=== PATIENT | female | born 1985 | race Caucasian/White ===

== ENCOUNTER 2018-06-28 04:18 | Emergency (ER) | payer OTHER ==
[~2018-06-28] VITALS: Ht 165.1 cm; Wt 54.5 kg
[2018-06-28 04:33] VITALS: Ht 165.1 cm; Wt 54.5 kg
[2018-06-28] MEDS ORDERED: MINOCIN50 MG PO (04:55)
[2018-06-28] MEDS ORDERED: HYDROCODON-ACE1 EA10 PO (04:55)
[2018-06-28 06:02] VITALS: BP 103/72
== END 2018-06-28 06:02 | disposition home or self-care (01) ==
LOC: D.ER 04:18
DX: L02.31 Cutaneous abscess of buttock (principal)

== ENCOUNTER 2019-02-06 00:55 | Inpatient (IN) | payer OTHER ==
[~2019-02-06] VITALS: Ht 165.1 cm; Wt 56.1 kg
[~2019-02-06 00:55] MED LIST: HYDROCODON-ACE1 EA10 PO; MINOCIN50 MG PO
[2019-02-06 01:19] LABS: APPEARANCE HAZY (CLEAR); BILIRUBIN NEGATIVE (NEGATIVE); COLOR YELLOW (YELLOW); GLUCOSE NEGATIVE (NEGATIVE); KETONE NEGATIVE (NEGATIVE); NITRITE POSITIVE (NEGATIVE); PROTEIN NEGATIVE (NEGATIVE); SPECIFIC GRAVITY 1.015 (1.005-1.020)
[2019-02-06 01:21] LABS: BACTERIA MANY /hpf (NEGATIVE); EPITHELIAL CELLS 0-5 /hpf (0-5); RED CELLS - URINE 0-5 /hpf (0-5); WHITE CELLS - URINE >50 /hpf (NEGATIVE)
[2019-02-06 01:27] LABS: BASOPHILS 0.1 % (0-2); EOSINOPHILS 0.3 % (0-7); HEMATOCRIT 34.3 % (36.0-48.0); HEMOGLOBIN 11.3 g/dL (12-16); IMMATURE GRANULOCYTES 0.5 % (0-5); LYMPHOCYTES 7.4 % (15-50); MCH 30.5 pg (26.0-34.0); MCHC 32.9 g/dL (31.0-37.0); MCV 92.7 fL (80.0-100.0); MEAN PLATELET VOLUME 9.1 fL (7.4-10.4); MONOCYTES 8.5 % (2-11); NEUTROPHILS 83.2 % (40-80); RDW 12.8 % (11.5-14.5); WBC 14.7 10x3/uL (4.8-10.8)
[2019-02-06 01:29] LABS: PLATELET COUNT 330 10x3/uL (130-400)
[2019-02-06 01:36] LABS: CALC OSMOLALITY 274 mosm/kg (275-300); CALCIUM 8.7 mg/dL (8.5-10.1); CARBON DIOXIDE 27.1 mmol/L (21.0-32.0); CHLORIDE - SERUM 100 mmol/L (98-107); CREATININE - SERUM 0.8 mg/dL (0.6-1.3); POTASSIUM - SERUM 3.3 mmol/L (3.5-5.1); SODIUM 136 mmol/L (136-145); UREA NITROGEN 12 mg/dL (7-18); eGFR NON AFRICAN AMERICAN 89 mL/min (90-120)
[2019-02-06 01:37] LABS: GLUCOSE 144 mg/dL (74-106)
[2019-02-06 01:41] LABS: ALBUMIN 2.6 g/dL (3.4-5.0); ALKALINE PHOSPHATASE 98 U/L (46-116); ALT (SGPT) 16 U/L (10-68); PROTEIN - SERUM 7.2 g/dL (6.4-8.2)
--- NOTE | 2019-02-06 02:18 | NUR ---
RECEIVED FROM ER, PT IS A&OX4, BED IS LOW, SRX1, CALL LIGHT IN REACH, WILL CONTINUE PLAN OF CARE
[2019-02-06 03:54] VITALS: BP 108/56; Ht 165.1 cm; Wt 56.1 kg
[2019-02-06 04:05] VITALS: BP 108/56
--- NOTE | 2019-02-06 07:39 | NUR ---
PT WAS RESTING FITFULLY, DID NOT WAKE I ENTERED ROOM. PT IS MOANING, BUT APPEARS TO BE SLEEPING. DOES NOT WANT MORPHINE, WILL TRY AND GET DIFFERENT PAIN MEDICATION TODAY. DID NOT FURTHER DISTURB AT THIS TIME. CL IN REACH, SRX2. NO FAMILY PRESENT.
[2019-02-06 08:08] VITALS: BP 96/57
[2019-02-06 11:33] LABS: UDS - AMPHET POSITIVE QUAL (NEGATIVE); UDS - BARB NEGATIVE QUAL (NEGATIVE); UDS - BENZO NEGATIVE QUAL (NEGATIVE); UDS - COCAINE NEGATIVE QUAL (NEGATIVE); UDS - OPIATE POSITIVE QUAL (NEGATIVE); UDS - PCP NEGATIVE QUAL (NEGATIVE); UDS - THC POSITIVE QUAL (NEGATIVE)
[2019-02-06 11:44] VITALS: BP 102/61
--- NOTE | 2019-02-06 16:05 | MORECARE ---
CASE MANAGEMENT DISCHARGE SUMMARY PATIENT: DEAN MEJIAS UNIT: [id number] ADM DATE: 02/06/19 AGE: 33 : 89 SEX: F ROOM/BED: D.[facility] AUTHOR: JOAQUIN DONNELLY PHYSICIAN: REFERRING PHYSICIAN: MARIA EUGENIA ARIAS MD DATE OF SERVICE: 02/06/19 Discharge Plan Patient Name: DEAN MEJIAS [facility] [facility] 1985 Planned Disposition: Anticipated Discharge Date: Discharge Date: Expected LOS: Initial Reviewer: [email or web address] Initial Review Date: 02/06/2019 Generated: 02/06/19 5:05 pm Patient Name: DEAN MEJIAS Page [id number] at 1605 All edits/amendments must be made on the electronic document DICTATION DATE: 02/06/19 1605 OCCUPATIONAL THERAPIST ASSISTANTS: CHAYO 02/06/19 1605 RPT#: [id number] DC DATE: STATUS: ADM IN [facility] [address] [place] [address] END OF REPORT
[2019-02-06 16:27] VITALS: BP 97/46
--- NOTE | 2019-02-06 17:06 | NUR ---
I have reviewed this patient and I concur with the Shift Assessment completed by the Licensed Practical Nurse today this shift.
--- NOTE | 2019-02-06 18:35 | NUR ---
PT HAS BEEN AWAKE AND ORIENTED, UP WITHOUT ASSITANCE. PT HAD SEVERE RIGHT FLANK PAIN THIS MORINING, BUT AFTER D/C MORPHINE, TRYING DILAUDID (PT STATES BOTH MADE HER UNCOMFORTABLY DIZZY), AND FIANLLY SETTLING ON NORCO 5, PTS PAIN IS BETTER MANAGED. LOW GRADE FEVER WITH LAST VITAL SIGNS, LOW B/P NOTED AND REPORTED. FEVER TREATED WITH TYLENOL. PT IS FRUSTRATED THAT IT IS ALMOST 1900 AND SHE STILL HASN'T SEEN A DOCTOR. INFORMED HER DOCTOR IS IN THE HOSPITAL AND WILL BE ROUNDING FAR WE ARE AWARE. CURRENTLY RESTING, INFORMED HER IT WAS BEST TO LOOK AWAKE WHEN THE DRPushpa ROUNDED, SHE SAID SHE'LL TRY BUT SHE'S VERY TIRED. FRIEND AT BEDSIDE, CL IN REACH, SRX2, QUESTIONS ANSWERED TO THE BEST OF MY ABILITY.
--- NOTE | 2019-02-06 19:42 | NUR ---
PT CARE ASSUMED. PT LAYING IN BED RR EVEN AND UNLABORED ON RA. NO S/S OF DISTRESS NOTED AT THIS TIME. NO VOICED C/O OR CONCERNS. SR X2, CALL LIGHT IN REACH. WILL CPOC.
[2019-02-06 20:20] VITALS: BP 104/57
[2019-02-07 00:37] VITALS: BP 92/59
[2019-02-07 04:30] VITALS: BP 96/58
[2019-02-07 05:35] LABS: BASOPHILS 0.1 % (0-2); EOSINOPHILS 1.2 % (0-7); HEMOGLOBIN 11.1 g/dL (12-16); IMMATURE GRANULOCYTES 0.6 % (0-5); LYMPHOCYTES 15.7 % (15-50); MCH 30.5 pg (26.0-34.0); MCHC 32.6 g/dL (31.0-37.0); MCV 93.4 fL (80.0-100.0); MEAN PLATELET VOLUME 9.6 fL (7.4-10.4); MONOCYTES 8.6 % (2-11); NEUTROPHILS 73.8 % (40-80); PLATELET COUNT 363 10x3/uL (130-400); RBC 3.64 10x6/uL (4.00-5.40); RDW 12.6 % (11.5-14.5)
[2019-02-07 05:58] LABS: CALC OSMOLALITY 280 mosm/kg (275-300); CALCIUM 8.2 mg/dL (8.5-10.1); CARBON DIOXIDE 26.8 mmol/L (21.0-32.0); CHLORIDE - SERUM 106 mmol/L (98-107); CREATININE - SERUM 0.7 mg/dL (0.6-1.3); GLUCOSE 142 mg/dL (74-106); POTASSIUM - SERUM 3.3 mmol/L (3.5-5.1); SODIUM 141 mmol/L (136-145); eGFR NON AFRICAN AMERICAN > 90 mL/min (90-120)
[2019-02-07 05:59] LABS: UREA NITROGEN 8 mg/dL (7-18)
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
[2019-02-07 07:57] VITALS: BP 100/57
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
--- NOTE | 2019-02-07 10:43 | NUR ---
I have reviewed this patient and I concur with the Shift Assessment completed by the Licensed Practical Nurse today this shift.
[2019-02-07 11:37] VITALS: BP 107/60
--- NOTE | 2019-02-07 13:09 | MORECARE ---
CASE MANAGEMENT DISCHARGE SUMMARY PATIENT: DEAN MEJIAS UNIT: [id number] ADM DATE: 02/06/19 AGE: 33 : [birth year] SEX: F ROOM/BED: D.[facility] AUTHOR: JOAQUIN DONNELLY PHYSICIAN: REFERRING PHYSICIAN: MARIA EUGENIA ARIAS MD DATE OF SERVICE: 02/07/19 Discharge Plan Patient Name: DEAN MEJIAS [facility] [facility] 1985 Planned Disposition: Home Anticipated Discharge Date: 02/08/19 Discharge Date: Expected LOS: 2 Initial Reviewer: [email or web address] Initial Review Date: 02/06/2019 Generated: 02/07/19 2:09 pm DCPIA - Discharge Planning Initial Assessment Updated by [email or web address]: Jaxson Montano on 02/07/19 1:02 pm * Is the patient Alert and Oriented? Yes * How many steps to enter\exit or inside your home? * PCP NONE * Pharmacy [facility] [address] * Preadmission Environment Home with Family * ADLs Independent * Equipment None * Other Equipment NO MEDICAL EQUIPMENT PROVIDER PREFERENCE * List name and contact numbers for known caregivers / representatives who currently or will assist patient after discharge: AMADEO MEJIAS, SPOUSE, * Verbal permission to speak to the caregivers and representatives has been obtained from the patient. N/A * Community resources currently utilized None * Please name any agencies selected above. NONE * Additional services required to return to the preadmission environment? No * Can the patient safely return to the preadmission environment? Yes * Has this patient been hospitalized within the prior 30 days at any hospital? No Last DP export: 02/06/19 3:05 p Patient Name: DEAN MEJIAS Page [id number] at 1309 All edits/amendments must be made on the electronic document DICTATION DATE: 02/07/19 1309 COMPUTER SYSTEMS SECURITY ANALYST: CHAYO 02/07/19 1309 RPT#: [id number] DC DATE: STATUS: ADM IN [facility] [address] [place] [address] END OF REPORT
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
[2019-02-07 15:31] VITALS: BP 98/70
--- NOTE | 2019-02-07 18:42 | NUR ---
PT HAS BEEN ALERT AND ORIENTED. NO COMPLAINTS, STATES PAIN IS BETTER. CL IN REACH, SRX2, RESTING PEACEFULLY AT THIS TIME. DENIES NIKOTINE PATCH
[2019-02-07 20:48] VITALS: BP 105/59
[2019-02-08 00:19] VITALS: BP 102/61
[2019-02-08 04:30] VITALS: BP 108/59
[2019-02-08 06:15] LABS: BASOPHILS 0.2 % (0-2); EOSINOPHILS 2.3 % (0-7); IMMATURE GRANULOCYTES 0.7 % (0-5); LYMPHOCYTES 21.5 % (15-50); MCH 30.1 pg (26.0-34.0); MCHC 32.4 g/dL (31.0-37.0); MCV 93.2 fL (80.0-100.0); MEAN PLATELET VOLUME 9.2 fL (7.4-10.4); MONOCYTES 8.8 % (2-11); NEUTROPHILS 66.5 % (40-80); PLATELET COUNT 384 10x3/uL (130-400); RBC 3.65 10x6/uL (4.00-5.40); RDW 12.5 % (11.5-14.5); WBC 8.7 10x3/uL (4.8-10.8)
[2019-02-08 06:30] LABS: CALC OSMOLALITY 277 mosm/kg (275-300); CALCIUM 8.4 mg/dL (8.5-10.1); CARBON DIOXIDE 29.5 mmol/L (21.0-32.0); CHLORIDE - SERUM 104 mmol/L (98-107); CREATININE - SERUM 0.7 mg/dL (0.6-1.3); MAGNESIUM - SERUM 2.3 mg/dL (1.8-2.4); POTASSIUM - SERUM 3.7 mmol/L (3.5-5.1); SODIUM 140 mmol/L (136-145); UREA NITROGEN 10 mg/dL (7-18); eGFR NON AFRICAN AMERICAN > 90 mL/min (90-120)
[2019-02-08 06:35] LABS: GLUCOSE 91 mg/dL (74-106)
[2019-02-08 07:44] VITALS: BP 107/63
[2019-02-08] MEDS ORDERED: OMNICEF300 MG PO (11:08)
[2019-02-08 11:41] VITALS: BP 108/76
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
--- NOTE | 2019-02-08 12:47 | NUR ---
20 GAUGE IV REMOVED FROM LEFT FOREARM. CATHETER TIP INTACT. NO BLEEDING FROM SITE. 2X2 GAUZE APPLIED AND SECURED WITH BANDAID. TOLERATED IV REMOVAL WELL PATIENT IS BEING DISCHARGED TO HOME.
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
== END 2019-02-08 12:45 | disposition home or self-care (01) | DRG 872 ==
LOC: D.ER 00:55 → OBSVTIME 01:03 → D.M2 01:03
PROVIDERS: Family Medicine; ADMIT Internal Medicine Nephrology; ATTEND Internal Medicine Nephrology
DX: A41.9 Sepsis, unspecified organism (principal); N10 Acute pyelonephritis; F17.213 Nicotine dependence, cigarettes, with withdrawal; D64.9 Anemia, unspecified; E87.6 Hypokalemia; F15.10 Other stimulant abuse, uncomplicated; F12.10 Cannabis abuse, uncomplicated

== ENCOUNTER 2019-06-27 13:21 | Emergency (ER) | payer OTHER ==
[~2019-06-27] VITALS: Ht 165.1 cm; Wt 50.0 kg
[~2019-06-27 13:21] MED LIST changes: +OMNICEF300 MG PO
[2019-06-27 13:26] VITALS: Ht 165.1 cm; Wt 50.0 kg
[2019-06-27 13:59] LABS: HEMATOCRIT 38.7 % (36.0-48.0); HEMOGLOBIN 13.2 g/dL (12-16); LYMPHOCYTES 8.4 % (15-50); MCH 30.3 pg (26.0-34.0); MCHC 34.1 g/dL (31.0-37.0); MEAN PLATELET VOLUME 9.8 fL (7.4-10.4); NEUTROPHILS 84.3 % (40-80); PLATELET COUNT 344 10x3/uL (130-400); RBC 4.35 10x6/uL (4.00-5.40); RDW 11.8 % (11.5-14.5); WBC 12.7 10x3/uL (4.8-10.8)
[2019-06-27 14:07] LABS: CALC OSMOLALITY 274 mosm/kg (275-300); CALCIUM 9.5 mg/dL (8.5-10.1); CARBON DIOXIDE 28.2 mmol/L (21.0-32.0); CHLORIDE - SERUM 99 mmol/L (98-107); CREATININE - SERUM 0.9 mg/dL (0.6-1.3); POTASSIUM - SERUM 3.2 mmol/L (3.5-5.1); SODIUM 136 mmol/L (136-145); UREA NITROGEN 10 mg/dL (7-18); eGFR NON AFRICAN AMERICAN 77 mL/min (90-120)
[2019-06-27 14:08] LABS: GLUCOSE 170 mg/dL (74-106)
[2019-06-27 14:10] LABS: BACTERIA MANY /hpf (NEGATIVE); BILIRUBIN NEGATIVE (NEGATIVE); EPITHELIAL CELLS 0-5 /hpf (0-5); GLUCOSE NEGATIVE (NEGATIVE); KETONE SMALL mg/dL (NEGATIVE); NITRITE POSITIVE (NEGATIVE); RED CELLS - URINE 0-5 /hpf (0-5); SPECIFIC GRAVITY 1.015 (1.005-1.020); UROBILINOGEN 4 mg/dL (NORMAL)
[2019-06-27 14:16] LABS: ALKALINE PHOSPHATASE 97 U/L (30-120); ALT (SGPT) 19 U/L (10-68); AMYLASE - SERUM 26 U/L (25-115); BILIRUBIN - TOTAL 0.55 mg/dL (0.2-1.3); PROTEIN - SERUM 7.5 g/dL (6.4-8.2)
[2019-06-27 14:17] LABS: LIPASE 32 U/L (73-393); TROPONIN-I < 0.017 ng/mL (0.000-0.060)
[2019-06-27 14:43] LABS: HCG SERUM NEGATIVE (NEGATIVE)
[2019-06-27] MEDS ORDERED: MACROBID100 MG PO (15:41)
[2019-06-27] MEDS ORDERED: ZOFRAN8 MG PO (15:41)
[2019-06-27 16:09] VITALS: BP 127/76
[2019-06-30 20:06] LABS: CHLAMYDIA TRACHOMATIS, NAA Negative (Negative)
== END 2019-06-27 16:10 | disposition home or self-care (01) ==
LOC: D.ER 13:21
PROVIDERS: Family Medicine
DX: N39.0 Urinary tract infection, site not specified (principal)